=== PATIENT | female | born 1940 | race Caucasian/White ===

== ENCOUNTER 2017-06-10 22:03 | Inpatient (IN) | payer MEDICARE ==
[~2017-06-10] VITALS: Ht 160 cm; Wt 57.7 kg
--- NOTE | ~2017-06-10 | WRIGHTHP ---
[place], [place] PATIENT HISTORY AND PHYSICAL EXAM NAME: DEANNE SYLVESTER [facility] #: [id number] UNIT #: [id number] ROOM: 404 DOCTOR: KINJAL TORRES MD BIRTHDATE: [birth year] DOS: HISTORY OF PRESENT ILLNESS: The patient is 76 years old. She had come to the office to have some routine blood work and she was noted to have a hemoglobin of 6.3. The patient was called and advised to come to the Emergency Room. In the ER, she was evaluated with a repeat CBC, which showed a hemoglobin of 5.3 and so she was admitted. This morning, the patient feels good and is not having any complaints. She has been taking care of her very sick for the last 2 years and she has not taken care of herself. She does not remember whether she had any blood in her stools or black stools. She does not have any abdominal pain, nausea or any emesis. She has history of a GI bleed with hospitalization in October 2015. At that time, she had a hemoglobin of 3. She was life-flighted to [facility] and she underwent an endoscopy, which showed an upper GI bleed, but she never underwent a colonoscopy because her medical condition became quite severe there and so they decided not to do a colonoscopy and she never proceeded to have one done as an outpatient. PAST MEDICAL HISTORY: 1. Significant for history of anemia with GI bleed in the past. 2. Trigeminal neuralgia. 3. Benign hypertension. 4. Aortic stenosis. MEDICATIONS: She is on are Lyrica, hydrochlorothiazide, Tegretol and Klonopin. She does not take any nonsteroidals. SOCIAL HISTORY: Nonsmoker. Does not use any alcohol. PHYSICAL EXAMINATION: GENERAL: The patient is awake, alert and oriented, in no distress this morning. VITAL SIGNS: Graphic trend shows that she is afebrile, blood pressure is 132/70, pulse of 76, respirations 14 and afebrile. HEENT: Within normal limits except for some bruising noticed below her left eye from a recent fall. LUNGS: Clear. HEART: Regular. ABDOMEN: Soft, scaphoid. EXTREMITIES: Without any edema. ASSESSMENT AND PLAN: 1. Precipitous drop in hematocrit in a patient with known history of GI bleed ____ admitted blood transfusion ordered. Consult Dr. Ho. Ferritin, TIBC has been ordered. The patient may benefit from iron infusions as an outpatient. 2. Hypokalemia. We will hold off on hydrochlorothiazide and give one dose of potassium this morning. Slow IV hydration to be given. 3. Aortic stenosis, severe. The patient did have a recent dizzy spell and had a fall, which could have been from the significant anemia she had, but we will also do an echocardiogram, check the severity of the aortic sclerosis. [place], [place] PATIENT HISTORY AND PHYSICAL EXAM [id number] #: [id number] ROOM: [facility] DOCTOR: KINJAL TORRES MD BIRTHDATE: [birth year] KINJAL TORRES MD CM:HISPHYS:PATIENT HISTORY AND PHYSICAL EXAMINATION [id number] KINJAL TORRES MD 06/11/17 0948 interface
--- NOTE | ~2017-06-10 | PR ---
[place], [place] PROGRESS NOTE NAME: [facility] [id number] UN[facility] #: [id number] ROOM: 404 DOCTOR: KINJAL TORRES MD BIRTHDATE: [birth year] DOS: SUBJECTIVE: The patient feels good and is not having any new complaints. She has not had any active bleeding since admission. OBJECTIVE: VITAL SIGNS: Graphic trend shows that she is afebrile. Blood pressure is 97/56, pulse of 84, respirations 18, temperature 98.6. LUNGS: Diminished breath sounds. No wheezes, rales or rhonchi heard. HEART: Regular with loud murmur heard. ABDOMEN: Obese, soft, nontender. EXTREMITIES: Without any edema. ASSESSMENT AND PLAN: 1. Severe aortic stenosis noted on the echocardiogram. The patient is advised to follow up with her cage cashier at . 2. Precipitous drop in hematocrit from underlying gastrointestinal bleed, awaiting today. H and H is stable after the 2 units of blood transfusion. Ferritin on the low side. The patient is to receive Ferrlecit IV. We will start her on iron supplements once the patient's colonoscopy is over with. KINJAL TORRES MD CM:PNTRANS [id number] KINJAL TORRES MD 06/13/17 1605 interface
--- NOTE | ~2017-06-10 | O ---
[place], [place] OPERATIVE NOTE NAME: DEANNE SYLVESTER UNIT #: [id number] ROOM: 404 DOCTOR: MAGUI KENNEDY MD BIRTHDATE: [birth year] DOS: INDICATION: A 76-year-old patient presented with chief complaint of severe anemia, hemoglobin of 5, hematocrit of 19, microcytic indices, undergoing investigation. Electrolytes: Potassium has been 3.4 addressed. CBC transfused ____. PAST MEDICAL HISTORY: Severe anemia. PAST SURGICAL HISTORY: Tonsillectomy. SOCIAL HISTORY: Nonsmoker, nonalcohol consumer. ALLERGIES: No known medication. MEDICATIONS: List has been reviewed. PROCEDURE: Today's procedure part of investigation is colonoscopy and panendoscopy. PREMEDICATIONS: Versed and Diprivan. SCOPE: Olympus folding colonoscope 10L video. REPORT: After putting the patient in the left lateral position and after application of lubricant to rectal pouch and digital examination, scope was introduced; thereafter, under direct visualization, advanced throughout the very tortuous colon with retained stool. However, base of cecum explored polypoid lesion from cecum with established polyp-like device and another one from sigmoid colon, which sample was lost and another one from rectal pouch with sample was recovered. IMPRESSION: Tortuous colon and redundant colon with some retained stool, colonic polyp at cecum, sigmoid colon and rectal pouch, status post snare polypectomies. PLAN AND DISCUSSION: We will proceed with panendoscopy. The patient has presented with chief complaint of GI bleed, undergoing investigation. PROCEDURE: Today's procedure part of investigation panendoscopy plus biopsy. PREMEDICATIONS: Versed and Diprivan. SCOPE: Olympus forward-viewing gastroscope Q10 video. REPORT: After putting the patient in the left lateral position and after application of lubricant to the scope, the scope was introduced; thereafter, [place], [place] OPERATIVE NOTE NAME: DEANNE SYLVESTER UNIT #: [id number] ROOM: 404 DOCTOR: MAGUI KENNEDY MD BIRTHDATE: [birth year] under direct visualization, advanced through the length of esophagus without difficulty. Esophagus cervicothoracic distally carefully examined. Gastric pouch was entered. Gastritis was seen. Gastric erosions noted. Antral biopsy obtained. Duodenal bulb, second and third part within normal limits. Some degraded blood in the gastric pouch identified. Air was suctioned out. The patient was extubated, tolerated procedure well. IMPRESSION: Gastritis, gastric erosions with presence of degraded blood in the gastric pouch. PLAN AND DISCUSSION: Carafate 1 g q.i.d. and Protonix 40 mg daily. Transfusion has already been done. H and H follow up. Soft diet and clinical reassessment. Awaiting biopsy results. This patient needs to be followed up in outpatient setting and if further drop in H and H occurs, then I recommend re-prep of the colon and hopefully that at that time colon is going to be completely clean for further reassessment. MAGUI KENNEDY MD CM:OPRECORD:OPERATIVE NOTE [id number] MAGUI KENNEDY MD 06/12/17 1319 interface
--- NOTE | ~2017-06-10 | PR ---
[place], [place] PROGRESS NOTE NAME: DEANNE SYLVESTER [facility] #: [id number] UNIT #: [id number] ROOM: 404 DOCTOR: KINJAL TORRES MD BIRTHDATE: [birth year] DOS: 06/13/2017 SUBJECTIVE: The patient has no complaints today. She underwent the endoscopy, which showed old blood in her stomach, gastric erosions, gastric ulcers and colonic polyp, which was removed piecemeal. The patient does not have any other complaints this morning. OBJECTIVE: VITAL SIGNS: Graphic trend shows pressure of 107/65, pulse of 76, respirations 18 and temperature 97.9. LUNGS: Clear. HEART: Regular, systolic murmur present. EXTREMITIES: Without any edema. LABORATORY DATA: None available this morning, they are all pending. ASSESSMENT AND PLAN: 1. Precipitous drop in hematocrit, stable. I am hoping the hemoglobin and hematocrit is no different from yesterday. If it is stable, then the plan is to discharge her to home today. 2. Severe aortic stenosis. The patient will require cardiology consultation ____ and possible aortic valve replacement and she is instructed to see her stonemason. KINJAL TORRES MD CM:PNTRANS [id number] KINJAL TORRES MD 06/17/17 0644 interface
--- NOTE | ~2017-06-10 | DS ---
[place], [place] DISCHARGE SUMMARY NAME: DEANNE SYLVESTER [facility] #: [id number] UNIT #: [id number] ROOM: 404 DOCTOR: KINJAL TORRES MD BIRTHDATE: [birth year] DOS: 06/13/2017 DIAGNOSES: 1. Precipitous drop in hematocrit. 2. Gastric ulcers, gastric erosions, upper GI bleed and colonoscopy showing a polyp with piecemeal polypectomy. 3. Benign hypertension. 4. Severe aortic stenosis. 5. Trigeminal neuralgia. MEDICATIONS: Same as on admission, which includes hydrochlorothiazide 12.5 daily, Lyrica 75 b.i.d., carbamazepine 100 mg 3 times a day, Klonopin 0.5 t.i.d., Remeron 20 at bedtime, Paxil 40 daily. The new meds given were Protonix 40 b.i.d., Carafate 1 gram q.i.d., iron 325 daily. HOSPITAL COURSE: This patient is very well known to us, was brought in because routine blood work showed that she was quite anemic. The patient was admitted. There was no active bleeding as per the patient, no black colored stools either. After admission, the patient was given 2 units of blood transfusion. Ferritin level was low, iron supplements, IV was started. Dr. Ho was consulted. Endoscopy, colonoscopy performed which showed the above-mentioned findings. She does have a very loud systolic murmur in the second space. Echocardiogram confirmed the severity of the aortic stenosis. The patient was instructed to see her master barber for further workup and possible valve replacement. The patient is overall stable and improved. The plan is to discharge her to home today. H and H this morning is still pending. She will need to have another H and H on Saturday. KINJAL TORRES MD CM:DISCHARG [id number] KINJAL TORRES MD 06/13/17 1419 interface
[~2017-06-10 22:03] MED LIST: 'KLONOPIN0.5 MG PO; CARBAMAZEPINE200 M2 PO; HYDR12.5C PO; LYRICA75 M1 PO
[2017-06-10 22:09] VITALS: BP 137/68
--- NOTE | 2017-06-10 23:26 | NUR ---
REPORT GIVEN TO PAWAN REDMAN RECEIVING PATIENT IN ROOM 404. DOES NOT WANT PATIENT TO BE BROUGHT UP AT THIS TIME. WILL CALL BACK TO ER WHEN READY FOR PATIENT.
--- NOTE | 2017-06-10 23:47 | NUR ---
NURSING BELL DONNELLY INFORMS ME THAT PATIENT NEEDS TO BE TAKEN UPSTAIRS AT THIS TIME.
[2017-06-10 23:58] LABS: BASO % 0.6 % (0.0-1.0); EOS # 0.1 10*3/uL (0.0-0.4); EOS % 1.6 % (1.0-4.0); LYMPH # 1.4 10*3/uL (1.3-4.4); LYMPH % 20.1 % (27.0-41.0); MEAN CELL VOLUME 72.7 fl (81.0-99.0); MEAN CORPUSCULAR HGB 19.6 pg (27.0-31.0); MEAN CORPUSCULAR HGB CONC 26.9 g/dl (33.0-37.0); MEAN PLATELET VOLUME 11.8 fl (9.6-12.3); MONO # 1.2 10*3/uL (0.1-1.0); MONO % 16.6 % (3.0-9.0); NEUT # 4.2 10*3/uL (2.3-7.9); NEUT % 60.8 % (47.0-73.0); PLATELET COUNT AUTOMATED 367 10*3/uL (130-400); RED BLOOD COUNT 2.71 10*6/uL (4.10-5.10); RED CELL DISTRI WIDTH 25.3 % (0-14.5)
[2017-06-11] VITALS (14 sets, daily range): BP systolic 83–122; BP diastolic 53–85
[2017-06-11] LABS: HEMATOCRIT 19.7 % (37.0-47.0)
[2017-06-11 00:02] LABS: HEMOGLOBIN 5.3 g/dl (12.0-16.0)
[2017-06-11 00:05] LABS: BUN 14 mg/dl (7-24); CHLORIDE 103 mmol/L (98-107); CREATININE 0.99 mg/dL (0.55-1.02); POTASSIUM 3.4 mmol/L (3.5-5.1); SODIUM 138 mmol/L (136-145)
[2017-06-11] MEDS ORDERED: REMERON15 M2 PO (03:39)
--- NOTE | 2017-06-11 03:41 | NUR ---
TAKES AN IRON TABLET UNSURE OF DOSE, IT IS AN OVER THE COUNTER MEDICATION AND HAS BEEN TAKING FOR 5-7 DAYS. ALSO TAKES A VIT D3 UNSURE OF DOSE. TAKES SUDAFED PRN FOR SEASONAL ALLERGIES.
--- NOTE | 2017-06-11 06:07 | NUR ---
Dr. Ho notified of consult, Hgb levels, blood transfusion. Wantestephania called with 0800 Hgb.
--- NOTE | 2017-06-11 06:10 | NUR ---
A 76, admitted to , under the services of KINJAL Sarmiento MD with a diagnosis of anemia. Chief complaint is Hgb 6.5. Patient arrived via ambulatory from ER. Monitor applied. Initial assessment completed. Vital signs taken and recorded. KINJAL SARMIENTO MD notified of admission to the unit. Orders received. See assessment for past medical history, medications and allergies. Patient and/or family oriented to unit. [facility] visitation policy reviewed. Clothing/patient valuable form completed. EFRAÍN ROY
--- NOTE | 2017-06-11 08:30 | NUR ---
[employer] in to talk to patient. Patient states lives at [address] with HER SON. There are 12 steps in the home. Physician: DR TORRES Pharmacy: [facility] [place] Home health services: NONE Patient's level of ADLs: INDEPENDENT Patient has working utilities: YES DME: NONE Follow-up physician's appointment after d/c: PREFERS TO MAKE HER OWN APPT Does patient want to access PORTAL?: Discharge plan HOME. SIMEON HOBBS
[2017-06-11 08:35] LABS: BASO # 0.1 10*3/uL (0.0-0.1); BASO % 0.7 % (0.0-1.0); EOS # 0.1 10*3/uL (0.0-0.4); LYMPH # 0.8 10*3/uL (1.3-4.4); LYMPH % 8.9 % (27.0-41.0); MEAN CORPUSCULAR HGB 23.1 pg (27.0-31.0); MEAN CORPUSCULAR HGB CONC 30.2 g/dl (33.0-37.0); MEAN PLATELET VOLUME 11.5 fl (9.6-12.3); MONO # 0.9 10*3/uL (0.1-1.0); NEUT # 6.6 10*3/uL (2.3-7.9); PLATELET COUNT AUTOMATED 338 10*3/uL (130-400); RED BLOOD COUNT 3.73 10*6/uL (4.10-5.10); RED CELL DISTRI WIDTH 23.9 % (0-14.5); WHITE BLOOD COUNT 8.4 10*3/uL (4.8-10.8)
[2017-06-11 08:37] LABS: HEMATOCRIT 28.5 % (37.0-47.0); HEMOGLOBIN 8.6 g/dl (12.0-16.0); MEAN CELL VOLUME 76.4 fl (81.0-99.0)
[2017-06-11] MEDS ORDERED: PAXIL40 M1 PO (14:26)
--- NOTE | 2017-06-11 15:06 | NUR ---
dr gilman called to request pt paxil be started per pt.
[2017-06-12] VITALS (9 sets, daily range): BP systolic 91–129; BP diastolic 51–73
--- NOTE | 2017-06-12 04:03 | NUR ---
PT ASLEEP IN BED. RESPIRATIONS EASY, NO S/S OF DISTRESS NOTED. WILL MONITOR.
--- NOTE | 2017-06-12 05:30 | NUR ---
FLEETS ENEMA ADMINISTERED PER ORDER. TAP WATER ENEMA ALSO ADMINISTERED FOLLOWING FLEETS. 250 ML OF TAP WATER TOLERATED. PATIENT REQUESTING BREAK. STOOL RUNNING YELLOW LIQUID AT THIS TIME. PATIENT OFFERED TO GET SET UP FOR BATH. STATES SHE HAS EVERYTHING SHE NEEDS AND WILL WASH UP SHORTLY.
[2017-06-12 06:58] LABS: BASO # 0.1 10*3/uL (0.0-0.1); BASO % 0.7 % (0.0-1.0); EOS # 0.3 10*3/uL (0.0-0.4); EOS % 2.7 % (1.0-4.0); HEMOGLOBIN 8.8 g/dl (12.0-16.0); LYMPH # 1.2 10*3/uL (1.3-4.4); LYMPH % 11.8 % (27.0-41.0); MEAN CELL VOLUME 79.2 fl (81.0-99.0); MEAN CORPUSCULAR HGB 23.2 pg (27.0-31.0); MEAN CORPUSCULAR HGB CONC 29.3 g/dl (33.0-37.0); MEAN PLATELET VOLUME 11.3 fl (9.6-12.3); MONO # 1.2 10*3/uL (0.1-1.0); MONO % 11.8 % (3.0-9.0); NEUT # 7.4 10*3/uL (2.3-7.9); NEUT % 72.6 % (47.0-73.0); PLATELET COUNT AUTOMATED 348 10*3/uL (130-400); RED BLOOD COUNT 3.79 10*6/uL (4.10-5.10); RED CELL DISTRI WIDTH 24.6 % (0-14.5); WHITE BLOOD COUNT 10.2 10*3/uL (4.8-10.8)
--- NOTE | 2017-06-12 07:33 | NUR ---
CALLED AT THIS TIME. NOTIFIED OF AM LAB RESULTS. STATES TO KEEP PT NPO, PT WILL HAVE EGD/COLO SCHEDULED.
--- NOTE | 2017-06-12 08:45 | NUR ---
PT RESTING IN BED, NO DISTRESS NOTED. PT STATES NO FURTHER BM'S THIS MORNING SINCE EARLIER ENEMA. INSTRUCTED PT THAT WE WOULD NEED TO DO ANOTHER TAP WATER ENEMA TO ENSURE SHE IS CLEAR. PT AGREED. CALL LIGHT WITHIN REACH, DAUGHTER AT BEDSIDE.
--- NOTE | 2017-06-12 08:49 | NUR ---
DR TORRES IN TO SEE PT AT THIS TIME.
--- NOTE | 2017-06-12 09:47 | NUR ---
TAP WATER ENEMA ADMINISTERED AT THIS TIME. PT IS NOW MOSTLY CLEAR.
--- NOTE | 2017-06-12 10:00 | NUR ---
PT DOWN FOR EGD/ COLO AT THIS TIME.
--- NOTE | 2017-06-12 12:12 | NUR ---
PT BACK FROM EGD/COLO AT THIS TIME. NO COMPLAINTS NOTED.
[2017-06-13] VITALS: BP 107/65
[2017-06-13 08:00] VITALS: BP 119/60
[2017-06-13] MEDS ORDERED: CARAFATE1 G1 PO (08:04)
[2017-06-13] MEDS ORDERED: PANTOPRAZOLE SO40 MG PO (08:04)
[2017-06-13] MEDS ORDERED: IRON325 M1 PO (08:04)
[2017-06-13 08:06] LABS: BASO # 0.1 10*3/uL (0.0-0.1); BASO % 0.7 % (0.0-1.0); EOS # 0.3 10*3/uL (0.0-0.4); EOS % 3.9 % (1.0-4.0); HEMATOCRIT 29.6 % (37.0-47.0); HEMOGLOBIN 8.5 g/dl (12.0-16.0); LYMPH # 1.2 10*3/uL (1.3-4.4); LYMPH % 14.3 % (27.0-41.0); MEAN CELL VOLUME 80.2 fl (81.0-99.0); MEAN CORPUSCULAR HGB CONC 28.7 g/dl (33.0-37.0); MEAN PLATELET VOLUME 11.3 fl (9.6-12.3); MONO # 0.9 10*3/uL (0.1-1.0); MONO % 11.1 % (3.0-9.0); NEUT # 5.8 10*3/uL (2.3-7.9); NEUT % 69.5 % (47.0-73.0); PLATELET COUNT AUTOMATED 333 10*3/uL (130-400); RED BLOOD COUNT 3.69 10*6/uL (4.10-5.10); RED CELL DISTRI WIDTH 25.7 % (0-14.5); WHITE BLOOD COUNT 8.3 10*3/uL (4.8-10.8)
[2017-06-13 08:36] LABS: BUN 13 mg/dl (7-24); CHLORIDE 110 mmol/L (98-107); CREATININE 0.72 mg/dL (0.55-1.02); POTASSIUM 3.9 mmol/L (3.5-5.1); SODIUM 142 mmol/L (136-145)
--- NOTE | 2017-06-13 10:03 | NUR ---
Discharge instructions reviewed with patient/family. Patient receptive and verbalizes understanding. Follow-up care arranged. Written instructions given to patient/family. Pt transported to [facility] via wheelchair accompanied by staff and family. SAVANNAH ESCOBAR
== END 2017-06-13 10:23 | disposition home or self-care (01) | DRG 378 ==
LOC: ED 22:03 → 4E 22:53 → EDHOLD 22:53 → 4E 22:54
PROVIDERS: Emergency Medicine Emergency Medical Services; Internal Medicine Gastroenterology; ADMIT Internal Medicine
PROC: 30233N1 Transfusion of Nonautologous Red Blood Cells into Peripheral Vein, Percutaneous Approach (ICD-10-PCS; principal; 2017-06-10)
PROC: 0DBH8ZX Excision of Cecum, Via Natural or Artificial Opening Endoscopic, Diagnostic (ICD-10-PCS; principal; 2017-06-10)
PROC: 0DBP8ZX Excision of Rectum, Via Natural or Artificial Opening Endoscopic, Diagnostic (ICD-10-PCS; principal; 2017-06-10)
PROC: 0DB68ZX Excision of Stomach, Via Natural or Artificial Opening Endoscopic, Diagnostic (ICD-10-PCS; principal; 2017-06-10)
DX: K25.4 Chronic or unspecified gastric ulcer with hemorrhage (principal); R71.0 Precipitous drop in hematocrit; I35.0 Nonrheumatic aortic (valve) stenosis; K29.70 Gastritis, unspecified, without bleeding; D12.0 Benign neoplasm of cecum; E87.6 Hypokalemia; K63.5 Polyp of colon; I10 Essential (primary) hypertension; G50.0 Trigeminal neuralgia; Z79.899 Other long term (current) drug therapy; Z91.81 History of falling

== ENCOUNTER 2017-10-13 00:09 | Emergency (ER) | payer MEDICARE ==
[~2017-10-13] VITALS: Ht 165.1 cm; Wt 54.4 kg
--- NOTE | ~2017-10-13 | EKG ---
[place], [place] ELECTROCARDIOGRAM REPORT NAME: DEANNE SYLVESTER UNIT #: [id number] ROOM: DOCTOR: SHAYY DUNN,KRISH BIRTHDATE: [birth year] DOS: 10/13/2017 TIME: 0031 hours. IMPRESSION: 1. Sinus rhythm, sinus tachycardia. 2. Frequent ventricular ectopy. 3. Inferolateral ST-T changes suggestive of ischemia. 4. Normal QT interval. KRISH LUCAS MD CM:EKGRPT:ELECTROCARDIOGRAM REPORT 1510 0007 KRISH LUCAS MD
[~2017-10-13 00:09] MED LIST changes: +CARAFATE1 G1 PO; +IRON325 M1 PO; +PANTOPRAZOLE SO40 MG PO; +PAXIL40 M1 PO; +REMERON15 M2 PO
[2017-10-13 01:12] LABS: MEAN CELL VOLUME 97.8 fl (81.0-99.0); MEAN CORPUSCULAR HGB 32.1 pg (27.0-31.0); MEAN CORPUSCULAR HGB CONC 32.8 g/dl (33.0-37.0); MEAN PLATELET VOLUME 11.3 fl (9.6-12.3); NUCLEATED RED BLOOD CELL 0.2 % (0.0-0.0); PLATELET COUNT AUTOMATED 148 10*3/uL (130-400); RED BLOOD COUNT 1.34 10*6/uL (4.10-5.10); RED CELL DISTRI WIDTH 16.5 % (0-14.5); WHITE BLOOD COUNT 15.6 10*3/uL (4.8-10.8)
[2017-10-13 01:22] LABS: HEMATOCRIT 13.1 % (37.0-47.0); HEMOGLOBIN 4.3 g/dl (12.0-16.0)
[2017-10-13 01:23] LABS: ACT PARTIAL THROMBO TIME 22.6 SECONDS (20.8-31.5); INTERNATIONAL NORM RATIO 1.1 (2.0-3.5)
[2017-10-13 01:32] LABS: ALBUMIN 2.4 gm/dl (3.1-4.5); ALKALINE PHOSPHATASE 47 U/L (45-117); BUN 60 mg/dl (7-24); CHLORIDE 108 mmol/L (98-107); CREATININE 0.95 mg/dL (0.55-1.02); LIPASE 97 U/L (73-393); POTASSIUM 2.9 mmol/L (3.5-5.1); SGOT/AST 15 IU/L (3-35); SGPT/ALT 20 U/L (12-78); SODIUM 146 mmol/L (136-145); TOTAL PROTEIN 4.5 gm/dL (6.4-8.2)
[2017-10-13 01:34] LABS: TOTAL CELLS COUNTED 100 #CELLS
[2017-10-13 01:36] LABS: PLATELET SUFFICIENCY NORMAL (NORMAL)
[2017-10-13 01:38] LABS: TROPONIN I 0.153 ng/ml (<0.045)
[2017-10-13 02:29] LABS: BILIRUBIN NEGATIVE (NEGATIVE); BLOOD NEGATIVE (NEGATIVE); CLARITY CLEAR (CLEAR); COLOR YELLOW (YELLOW); GLUCOSE NEGATIVE (NEGATIVE); KETONE NEGATIVE (NEGATIVE); LEUKO ESTERASE 2+ (NEGATIVE); NITRITE NEGATIVE (NEGATIVE); PH 5.5 (5.0-9.0); SPECIFIC GRAVITY <= 1.005 (1.005-1.030); UROBILINOGEN 0.2 E.U./dl (0.2-1.0)
[2017-10-13 02:39] LABS: EPITHELIAL CELLS 25-30
[2017-10-13 02:40] LABS: BACTERIA TRACE; WBC 21-30 wbc/hpf (0-5)
== END 2017-10-13 08:19 | disposition short-term general hospital (02) ==
LOC: ED 00:09
PROVIDERS: Nurse Practitioner Family
DX: K29.01 Acute gastritis with bleeding (principal); E87.6 Hypokalemia; K29.70 Gastritis, unspecified, without bleeding; R19.5 Other fecal abnormalities; K63.5 Polyp of colon; D64.9 Anemia, unspecified; R00.0 Tachycardia, unspecified; Z79.899 Other long term (current) drug therapy

== ENCOUNTER → 2018-01-03 | Outpatient (CLI) | payer MEDICARE ==
[2018-01-03 09:27] LABS: ALBUMIN 3.4 gm/dl (3.1-4.5); CREATININE 1.19 mg/dL (0.55-1.02); FREE T4 0.57 ng/dl (0.76-1.46); POTASSIUM 2.8 mmol/L (3.5-5.1); TOTAL PROTEIN 6.9 gm/dL (6.4-8.2)
[2018-01-03 09:43] LABS: BASO # 0.1 10*3/uL (0.0-0.1); BASO % 0.8 % (0.0-1.0); EOS # 0.2 10*3/uL (0.0-0.4); EOS % 3.2 % (1.0-4.0); HEMATOCRIT 37.1 % (37.0-47.0); HEMOGLOBIN 11.4 g/dl (12.0-16.0); LYMPH # 0.9 10*3/uL (1.3-4.4); LYMPH % 12.3 % (27.0-41.0); MEAN CELL VOLUME 86.3 fl (81.0-99.0); MEAN CORPUSCULAR HGB 26.5 pg (27.0-31.0); MEAN CORPUSCULAR HGB CONC 30.7 g/dl (33.0-37.0); MEAN PLATELET VOLUME 12.3 fl (9.6-12.3); MONO # 0.6 10*3/uL (0.1-1.0); MONO % 8.4 % (3.0-9.0); NEUT # 5.5 10*3/uL (2.3-7.9); PLATELET COUNT AUTOMATED 226 10*3/uL (130-400); RED CELL DISTRI WIDTH 17.6 % (0-14.5); WHITE BLOOD COUNT 7.3 10*3/uL (4.8-10.8)
[2018-01-03 09:55] LABS: THYROID STIM HORMONE (HS) 27.3 uIU/ml (0.358-4.75)
[2018-01-03 10:46] LABS: VITAMIN D, 25-HYDROXY 33.2 ng/mL (30-100)
== END | disposition home or self-care (01) ==
LOC: LAB 07:59
PROVIDERS: Internal Medicine
DX: I10 Essential (primary) hypertension (principal); R63.4 Abnormal weight loss; F33.1 Major depressive disorder, recurrent, moderate; J44.1 Chronic obstructive pulmonary disease with (acute) exacerbation; I35.0 Nonrheumatic aortic (valve) stenosis; K25.3 Acute gastric ulcer without hemorrhage or perforation; D50.9 Iron deficiency anemia, unspecified; G50.0 Trigeminal neuralgia; I38 Endocarditis, valve unspecified; K25.0 Acute gastric ulcer with hemorrhage; J45.30 Mild persistent asthma, uncomplicated; F33.9 Major depressive disorder, recurrent, unspecified

== ENCOUNTER → 2018-02-25 | Outpatient (CLI) | payer MEDICARE | END | disposition home or self-care (01) | LOC: US 10:56 | DX: E04.2 Nontoxic multinodular goiter (principal) ==

== ENCOUNTER → 2018-04-28 | Outpatient (CLI) | payer MEDICARE | END | disposition home or self-care (01) | LOC: US 11:30 | DX: R06.02 Shortness of breath (principal); R60.0 Localized edema ==

== ENCOUNTER 2018-09-03 12:51 | Emergency (ER) | payer MEDICARE ==
[~2018-09-03] VITALS: Ht 160 cm; Wt 58.1 kg
--- NOTE | ~2018-09-03 | EKG ---
[place], [place] ELECTROCARDIOGRAM REPORT NAME: DEANNE SYLVESTER UNIT #: [id number] ROOM: DOCTOR: EPIPHANY DRAFT REPORT BIRTHDATE: [birth year] [facility] Test Date: 2018-09-03 Test Time: 13:43:36 Pat Name: DEANNE SYLVESTER Department: Room: Gender: F Store Promoter: : 1940 Requested By: PEEWEE JAVIER Order Number: [id number] Reading MD: Filiberto Santacruz MD Measurements Intervals [place] Rate: 75 P: 45 DE: 164 QRS: -12 QRSD: 103 T: 237 QT: 453 QTc: 506 Interpretive Statements Sinus rhythm Ventricular trigeminy Left atrial enlargement LVH with secondary repolarization abnormality Prolonged QT interval No previous ECG available for comparison Electronically Signed On 09-08-2018 12:26:37 PST by Filiberto Santacruz MD CM:EKGRPT:ELECTROCARDIOGRAM REPORT [id number] PEEWEE BRYAN DRAFT REPORT PEEWEE JAVIER MD
[2018-09-03 13:44] LABS: BASO % 0.4 % (0.0-1.0); EOS # 0.2 10*3/uL (0.0-0.4); EOS % 2.6 % (1.0-4.0); HEMATOCRIT 40.9 % (37.0-47.0); HEMOGLOBIN 13.3 g/dl (12.0-16.0); LYMPH # 0.8 10*3/uL (1.3-4.4); LYMPH % 10.7 % (27.0-41.0); MEAN CELL VOLUME 94.7 fl (81.0-99.0); MEAN CORPUSCULAR HGB 30.8 pg (27.0-31.0); MEAN CORPUSCULAR HGB CONC 32.5 g/dl (33.0-37.0); MEAN PLATELET VOLUME 10.1 fl (9.6-12.3); MONO # 0.8 10*3/uL (0.1-1.0); NEUT # 5.2 10*3/uL (2.3-7.9); NEUT % 74.9 % (47.0-73.0); PLATELET COUNT AUTOMATED 183 10*3/uL (130-400); RED BLOOD COUNT 4.32 10*6/uL (4.10-5.10); RED CELL DISTRI WIDTH 17.5 % (0-14.5)
[2018-09-03 13:53] LABS: ACT PARTIAL THROMBO TIME 26.3 SECONDS (20.8-31.5); INTERNATIONAL NORM RATIO 0.9 (2.0-3.5)
[2018-09-03 14:01] LABS: ALBUMIN 3.2 gm/dl (3.1-4.5); BUN 21 mg/dl (7-24); CHLORIDE 100 mmol/L (98-107); CREATININE 0.91 mg/dL (0.55-1.02); POTASSIUM 3.1 mmol/L (3.5-5.1); SGOT/AST 21 IU/L (3-35); SGPT/ALT 45 U/L (12-78); SODIUM 143 mmol/L (136-145); TOTAL PROTEIN 6.7 gm/dL (6.4-8.2)
[2018-09-03 14:03] LABS: ALKALINE PHOSPHATASE 93 U/L (45-117)
[2018-09-03 14:05] LABS: TROPONIN I < 0.015 ng/ml (<0.045)
== END 2018-09-03 15:50 | disposition home or self-care (01) ==
LOC: ED 12:51
PROVIDERS: Emergency Medicine
DX: R60.0 Localized edema (principal); E87.6 Hypokalemia; I11.0 Hypertensive heart disease with heart failure; I50.9 Heart failure, unspecified; I48.91 Unspecified atrial fibrillation; Z79.82 Long term (current) use of aspirin; Z79.899 Other long term (current) drug therapy

== ENCOUNTER 2019-04-10 18:39 | Emergency (ER) | payer MEDICARE ==
[~2019-04-10] VITALS: Ht 160 cm; Wt 63.5 kg
[2019-04-10 20:08] LABS: BASO % 0.1 % (0.0-1.0); EOS % 0.1 % (1.0-4.0); HEMATOCRIT 41.7 % (37.0-47.0); HEMOGLOBIN 13.7 g/dl (12.0-16.0); LYMPH # 0.6 10*3/uL (1.3-4.4); MEAN CELL VOLUME 95.6 fl (81.0-99.0); MEAN CORPUSCULAR HGB 31.4 pg (27.0-31.0); MEAN CORPUSCULAR HGB CONC 32.9 g/dl (33.0-37.0); MEAN PLATELET VOLUME 11.3 fl (9.6-12.3); MONO # 0.8 10*3/uL (0.1-1.0); MONO % 6.6 % (3.0-9.0); NEUT % 87.8 % (47.0-73.0); PLATELET COUNT AUTOMATED 170 10*3/uL (130-400); RED BLOOD COUNT 4.36 10*6/uL (4.10-5.10); RED CELL DISTRI WIDTH 15.9 % (0-14.5); WHITE BLOOD COUNT 11.4 10*3/uL (4.8-10.8)
[2019-04-10 20:19] LABS: ACT PARTIAL THROMBO TIME 22.7 SECONDS (20.0-32.1); INTERNATIONAL NORM RATIO 0.9 (2.0-3.5)
[2019-04-10 20:24] LABS: ALBUMIN 3.5 gm/dl (3.1-4.5); CREATININE 1.18 mg/dL (0.55-1.02); POTASSIUM 3.7 mmol/L (3.5-5.1); TOTAL PROTEIN 6.6 gm/dL (6.4-8.2)
== END 2019-04-10 22:10 | disposition home or self-care (01) ==
LOC: ED 18:39
PROVIDERS: Physician Assistant
DX: S00.81XA Abrasion of other part of head, initial encounter (principal); R07.89 Other chest pain; R10.30 Lower abdominal pain, unspecified; M54.2 Cervicalgia; R07.2 Precordial pain; Z79.899 Other long term (current) drug therapy; V89.2XXA Person injured in unspecified motor-vehicle accident, traffic, initial encounter; Y93.89 Activity, other specified; Y92.488 Other paved roadways as the place of occurrence of the external cause; Y99.8 Other external cause status

== ENCOUNTER 2021-04-10 06:49 | Emergency (ER) | payer MEDICARE, OTHER ==
[~2021-04-10] VITALS: Ht 167.6 cm; Wt 59.0 kg
== END 2021-04-10 15:45 | disposition short-term general hospital (02) ==
LOC: ED 06:49
DX: G50.0 Trigeminal neuralgia (principal); Z79.899 Other long term (current) drug therapy

== ENCOUNTER → 2024-03-25 | Outpatient (CLI) | payer MEDICARE | END | disposition home or self-care (01) | LOC: CARD 00:46 | PROVIDERS: ATTEND Internal Medicine | DX: I08.1 Rheumatic disorders of both mitral and tricuspid valves (principal); I48.91 Unspecified atrial fibrillation ==

== ENCOUNTER → 2024-04-30 | Outpatient (CLI) | payer MEDICARE | END | disposition home or self-care (01) | LOC: RESCLI 00:41 | PROVIDERS: ATTEND Internal Medicine | DX: I48.91 Unspecified atrial fibrillation (principal); Z88.8 Allergy status to other drugs, medicaments and biological substances; Z98.890 Other specified postprocedural states; I10 Essential (primary) hypertension; Z79.899 Other long term (current) drug therapy ==

== ENCOUNTER 2025-04-05 15:28 | Observation (INO) | payer MEDICARE ==
[2025-04-05 15:37] VITALS: BP 164/90
[2025-04-05] MEDS ORDERED: Synthroid,Levo50 MCG PO (17:10)
[2025-04-05] MEDS ORDERED: ELIQUIS2.5 M1 PO (17:10)
[2025-04-05] MEDS ORDERED: OXCARBAZEPINE150 MG PO (17:11)
[2025-04-05] MEDS ORDERED: ROSUVASTATIN CAL5 MG PO (17:12)
[2025-04-05] MEDS ORDERED: LAMOTRIGINE25 M1 PO (17:13)
[2025-04-05] MEDS ORDERED: ESOMEPRAZOLE MA40 M1 PO (17:13)
[2025-04-05] MEDS ORDERED: Lopressor25 MG PO (17:13)
[2025-04-05] MEDS ORDERED: NATURE'S BLEND F1 MG PO (17:14)
[2025-04-05] MEDS ORDERED: FUROSEMIDE40 MG PO (17:15)
[2025-04-05] MEDS ORDERED: SODIUM CHLORIDE 0.9% 500 ML IV ONE (19:35)
[2025-04-05] MEDS ORDERED: Ondansetron Hydrochloride 4 MG/2 ML VIAL IV ONE (19:35)
[2025-04-05 19:50] LABS: BASO # 0.1 10*3/uL (0.0-0.1); BASO % 0.7 % (0.0-1.0); EOS # 0.2 10*3/uL (0.0-0.4); EOS % 2.0 % (1.0-4.0); MEAN CELL VOLUME 94.9 fl (81.0-99.0); MEAN CORPUSCULAR HGB 30.8 pg (27.0-31.0); MEAN PLATELET VOLUME 10.8 fl (9.6-12.3); MONO # 0.9 10*3/uL (0.1-1.0); MONO % 10.6 % (3.0-9.0); NEUT # 5.6 10*3/uL (2.3-7.9); NEUT % 67.9 % (47.0-73.0); NUCLEATED RED BLOOD CELL 0.0 % (0.0-0.0); NUCLEATED RED BLOOD CELL 0.0 10*3/uL (0.0-0.0); PLATELET COUNT AUTOMATED 158 10*3/uL (130-400); RED CELL DISTRI WIDTH 15.4 % (0-14.5)
[2025-04-05 19:54] VITALS: BP 137/74
[2025-04-05 20:09] LABS: BUN 12 mg/dl (9-23)
[2025-04-05] MEDS ORDERED: FUROSEMIDE 20 MG TAB PO ONE (22:30)
[2025-04-05] MEDS ORDERED: APIXABAN 2.5 MG TABLET PO ONE (22:30)
[2025-04-05] MEDS ORDERED: LAMOTRIGINE 25 MG TAB PO ONE (22:30)
[2025-04-06] MEDS ORDERED: Ondansetron Hydrochloride 4 MG/2 ML VIAL IV ONE (03:45)
[2025-04-06 05:46] VITALS: BP 115/58
[2025-04-06] MEDS ORDERED: LAMOTRIGINE 25 MG TAB PO ONE ×2 (05:55→14:50)
[2025-04-06] MEDS ORDERED: APIXABAN 2.5 MG TABLET PO ONE (05:55)
[2025-04-06] MEDS ORDERED: PREGABALIN 75 MG CAP PO ONE (05:55)
[2025-04-06 07:33] VITALS: BP 114/58
[2025-04-06] MEDS ORDERED: GABAPENTIN 100 MG CAP PO SCH (17:00)
[2025-04-06] MEDS ORDERED: OMEPRAZOLE 20 MG CAP PO SCH (18:00)
[2025-04-06] MEDS ORDERED: SODIUM CHLORIDE 0.9% 1,000 ML IV SCH (18:05)
[2025-04-06] MEDS ORDERED: HYDROmorphONE Hydrochloride 0.5 MG/0.5 ML SYRINGE IV PRN (18:05)
[2025-04-06 19:05] VITALS: BP 95/45
[2025-04-06] MEDS ORDERED: PREGABALIN 75 MG CAP PO SCH (22:00)
[2025-04-06] MEDS ORDERED: LAMOTRIGINE 25 MG TAB PO SCH (22:00)
[2025-04-06] MEDS ORDERED: APIXABAN 2.5 MG TABLET PO SCH (22:00)
[2025-04-07 00:01] VITALS: BP 119/61
[2025-04-07 02:03] VITALS: BP 139/64
[2025-04-07 04:01] VITALS: BP 148/80
[2025-04-07 06:01] VITALS: BP 123/68
[2025-04-07 07:21] VITALS: BP 135/81
[2025-04-07] MEDS ORDERED: FOLIC ACID 1 MG TAB PO SCH (10:00)
[2025-04-07] MEDS ORDERED: FUROSEMIDE 40 MG TAB PO SCH (10:00)
[2025-04-07 13:33] VITALS: BP 127/63
== END 2025-04-07 16:04 | disposition short-term general hospital (02) ==
LOC: ED 15:28 → EDHOLD 04-06 11:30
PROVIDERS: Emergency Medicine; ADMIT Internal Medicine; ATTEND Internal Medicine
DX: G50.0 Trigeminal neuralgia (principal); I35.0 Nonrheumatic aortic (valve) stenosis; I10 Essential (primary) hypertension; E03.9 Hypothyroidism, unspecified; K92.2 Gastrointestinal hemorrhage, unspecified; Z79.899 Other long term (current) drug therapy